=== PATIENT | male | born 1950 | race Caucasian/White ===

== ENCOUNTER → 2017-01-03 | Outpatient (CLI) | payer MEDICARE, BC ==
[2017-01-03 12:37] LABS: FREE T4 1.08 NG/DL (0.76-1.46)
== END ==
LOC: M LAB 10:48
PROVIDERS: ATTEND Internal Medicine Gastroenterology
DX: R19.7 Diarrhea, unspecified (principal)

== ENCOUNTER → 2020-02-12 | Outpatient (REF) | payer MEDICARE, BC ==
[2020-02-12 17:50] LABS: COMPLEMENT C3 130 MG/DL (90-180); COMPLEMENT C4 28 MG/DL (10-40); FERRITIN 172 NG/ML (26-388); IRON (FE) 79 UG/DL (65-175); PERCENT SATURATION 24.3 % (19.7-50.0); TOTAL IRON BINDING CAPACITY 325 UG/DL (250-450); TOTAL PROTEIN 6.1 GM/DL (6.4-8.2)
[2020-02-12 18:00] LABS: HEPATITIS B SURFACE ANTIBODY NEGATIVE (POSITIVE)
[2020-02-12 18:10] LABS: HEPATITIS B SURFACE ANTIGEN NEGATIVE (NEGATIVE)
[2020-02-12 18:39] LABS: HEPATITIS B CORE ANTIBODY IGM NEGATIVE (NEGATIVE)
== END ==
LOC: M LAB REF 17:00
PROVIDERS: ATTEND Internal Medicine Nephrology
DX: R80.9 Proteinuria, unspecified (principal); E11.22 Type 2 diabetes mellitus with diabetic chronic kidney disease

== ENCOUNTER → 2020-03-11 | Outpatient (REF) | payer MEDICARE, BC | LOC: M LAB REF 16:44 | PROVIDERS: ATTEND Internal Medicine Nephrology | DX: N18.4 Chronic kidney disease, stage 4 (severe) (principal); R80.9 Proteinuria, unspecified ==

== ENCOUNTER → 2020-12-07 | Outpatient (REF) | payer MEDICARE, BC ==
[2020-12-07 17:53] LABS: MAGNESIUM LEVEL 1.9 MG/DL (1.8-2.4); PERCENT SATURATION 13.1 % (19.7-50.0)
== END ==
LOC: M LAB REF 17:08
PROVIDERS: ATTEND Internal Medicine Nephrology
DX: D50.9 Iron deficiency anemia, unspecified (principal); E83.42 Hypomagnesemia

== ENCOUNTER 2020-12-29 10:26 | Outpatient (CLI) | payer MEDICARE, BC ==
[~2020-12-29] VITALS: Ht 182.9 cm; Wt 126.5 kg
[~2020-12-29 10:26] MED LIST: ALBUTEROL SULFATE 2.5 MG/0.5 ML INH NEB SOLN INH PRN; EPINEPHrine INJ 1 MG/ML 1ML AMP IM PRN; IRON SUCROSE 25 MG in NS 25 ML IV ONE; IRON SUCROSE 300 MG in NS 250 ML OVER 90 MIN. IV ONE; diphenhydrAMINE 50MG/ML VIAL (J1200) IV PRN; methylPREDNISolone 125MG 2ML VIAL IV PRN
[2020-12-29] MEDS ORDERED: ALBUTEROL SULFATE 2.5 MG/0.5 ML INH NEB SOLN INH PRN (10:30)
[2020-12-29] MEDS ORDERED: diphenhydrAMINE 50MG/ML VIAL (J1200) IV PRN (10:30)
[2020-12-29] MEDS ORDERED: IRON SUCROSE 300 MG in NS 250 ML OVER 90 MIN. IV ONE (10:30)
[2020-12-29] MEDS ORDERED: methylPREDNISolone 125MG 2ML VIAL IV PRN (10:30)
[2020-12-29] MEDS ORDERED: IRON SUCROSE 25 MG in NS 25 ML IV ONE (10:30)
[2020-12-29] MEDS ORDERED: EPINEPHrine INJ 1 MG/ML 1ML AMP IM PRN (10:30)
[2020-12-29 10:35] VITALS: BP 139/66
[2020-12-29 11:50] VITALS: BP 160/71
[2020-12-29 13:30] VITALS: BP 156/77
[2020-12-29] MEDS ORDERED: METO1TAB7 PO (14:57)
[2020-12-29] MEDS ORDERED: AZEL23SP NS (14:57)
[2020-12-29] MEDS ORDERED: ECOT81TA5 PO (14:57)
[2020-12-29] MEDS ORDERED: TRAZ-186 PO (14:57)
[2020-12-29] MEDS ORDERED: ATOR40TA75 PO (14:57)
== END 2020-12-29 13:00 | disposition home or self-care (01) ==
LOC: M INFU 10:26
PROVIDERS: ATTEND Internal Medicine Nephrology
DX: D50.9 Iron deficiency anemia, unspecified (principal)
CPT/HCPCS: 96365; J1756

== ENCOUNTER → 2021-01-06 | Outpatient (REF) | payer MEDICARE, BC ==
[~2021-01-06] MED LIST changes: -ALBUTEROL SULFATE 2.5 MG/0.5 ML INH NEB SOLN INH PRN; +ATOR40TA75 PO; +AZEL23SP NS; +ECOT81TA5 PO; -EPINEPHrine INJ 1 MG/ML 1ML AMP IM PRN; -IRON SUCROSE 25 MG in NS 25 ML IV ONE; -IRON SUCROSE 300 MG in NS 250 ML OVER 90 MIN. IV ONE; +METO1TAB7 PO; +TRAZ-186 PO; -diphenhydrAMINE 50MG/ML VIAL (J1200) IV PRN; -methylPREDNISolone 125MG 2ML VIAL IV PRN
== END ==
LOC: M LAB REF 17:34
PROVIDERS: ATTEND Internal Medicine Nephrology
DX: N18.4 Chronic kidney disease, stage 4 (severe) (principal); E83.42 Hypomagnesemia

== ENCOUNTER → 2021-03-18 | Outpatient (REF) | payer MEDICARE, BC | LOC: M LAB REF 12:59 | PROVIDERS: ATTEND Internal Medicine Nephrology | DX: E83.42 Hypomagnesemia (principal) ==

== ENCOUNTER 2021-08-03 14:37 | Outpatient (CLI) | payer MEDICARE, BC ==
[~2021-08-03] VITALS: Ht 185.4 cm; Wt 109.0 kg
[~2021-08-03 14:37] MED LIST changes: +ALBUTEROL SULFATE 2.5 MG/0.5 ML INH NEB SOLN INH PRN; +EPINEPHrine INJ 1 MG/ML 1ML AMP IM PRN; +FERRIC CARBOXYMALTOSE INJ 750 MG, VIAL MATE ADAPTER 1 EACH in NS 250 ML IV ONE; +NS 1,000 ML IV SCH; +diphenhydrAMINE 50MG/ML VIAL (J1200) IV PRN; +methylPREDNISolone 125MG 2ML VIAL IV PRN
[2021-08-03 14:45] VITALS: BP 136/66
[2021-08-03 16:00] VITALS: BP 128/62
== END 2021-08-03 16:00 | disposition home or self-care (01) ==
LOC: M INFU 14:37
PROVIDERS: ATTEND Internal Medicine Nephrology
DX: E61.1 Iron deficiency (principal); Z88.0 Allergy status to penicillin
CPT/HCPCS: 96365; J1439

== ENCOUNTER 2021-08-10 14:41 | Outpatient (CLI) | payer MEDICARE, BC ==
[~2021-08-10] VITALS: Ht 182.9 cm; Wt 108.1 kg
[2021-08-10 14:50] VITALS: BP 157/75
[2021-08-10 16:30] VITALS: BP 188/88
== END 2021-08-10 16:30 | disposition home or self-care (01) ==
LOC: M INFU 14:41
PROVIDERS: ATTEND Internal Medicine Nephrology
DX: E61.1 Iron deficiency (principal); Z88.0 Allergy status to penicillin
CPT/HCPCS: 96365; 96366; J1439